=== PATIENT | male | born 1980 | race Caucasian/White ===

== ENCOUNTER 2017-12-04 15:30 | Emergency (ER) | payer OTHER ==
[~2017-12-04] VITALS: Ht 182.9 cm; Wt 109.0 kg
[2017-12-04] MEDS ORDERED: PROPARACAINE OPHTH 0.5%, 15ML EACHEYE ONE (16:30)
[2017-12-04] MEDS ORDERED: FLUORESCEIN OPHTHALMIC 1 MG STRIP EACHEYE ONE (16:30)
[2017-12-04 17:42] VITALS: BP 131/92
[2017-12-04] MEDS ORDERED: PROPARACAINE OPHTH 0.5%, 15ML ONE (17:52)
[2017-12-04] MEDS ORDERED: FLUORESCEIN OPHTHALMIC 1 MG STRIP ONE (17:52)
== END 2017-12-04 19:21 | disposition home or self-care (01) ==
LOC: ED 18:50
DX: S05.02XA Injury of conjunctiva and corneal abrasion without foreign body, left eye, initial encounter (principal); X58.XXXA Exposure to other specified factors, initial encounter; Y93.9 Activity, unspecified; Y92.89 Other specified places as the place of occurrence of the external cause; Y99.8 Other external cause status
CPT/HCPCS: 99283

== ENCOUNTER 2018-10-14 17:42 | Emergency (ER) | payer OTHER ==
[~2018-10-14] VITALS: Ht 182.9 cm; Wt 113.4 kg
[2018-10-14 18:47] LABS: BASOPHILS # (AUTO) 0.04 x10^3/uL (0-0.1); BASOPHILS % (AUTO) 0 % (0-1); EOSINOPHILS # (AUTO) 0.22 x10^3/uL (0-0.4); EOSINOPHILS % (AUTO) 2 % (1-7); LYMPHOCYTES % (AUTO) 28 % (22-44); MD NO; MEAN CORPUSCULAR HEMOGLOBIN 30.4 pg (27.5-34.5); MEAN CORPUSCULAR HGB CONC 34.6 g/dL (33.2-36.2); MEAN CORPUSCULAR VOLUME 87.9 fL (81-97); MEAN PLATELET VOLUME 8.7 fL (7.4-10.4); MONOCYTES % (AUTO) 7 % (2-9); NEUTROPHILS # (AUTO) 6.02 x10^3/uL (1.8-6.8); NEUTROPHILS % (AUTO) 62 % (42-75); PLATELET COUNT 309 x10^3/uL (130-400); RED BLOOD COUNT 5.32 x10^6/uL (4.38-5.82); RED CELL DISTRIBUTION WIDTH 13.6 % (9.4-14.8)
[2018-10-14 18:57] LABS: ALANINE AMINOTRANSFERASE 42 U/L (12-78); ALBUMIN 4.2 g/dL (3.4-5.0); ANION GAP 5 mmol/L (5-15); CALCIUM 9.1 mg/dL (8.5-10.1); CHLORIDE 110 mmol/L (98-107); CREATININE 1.13 mg/dL (0.7-1.3)
[2018-10-14 18:59] LABS: ALKALINE PHOSPHATASE 90 U/L (45-117); BILIRUBIN,TOTAL 0.3 mg/dL (0.2-1.0); TOTAL PROTEIN 8.1 g/dL (6.4-8.2)
--- NOTE | 2018-10-14 19:57 | NUR ---
pt up to bathrrom for ua
--- NOTE | 2018-10-14 20:06 | NUR ---
JOSE RAMON SENT
--- NOTE | 2018-10-14 20:09 | NUR ---
PT HERE FOR BLOODY STOOL THAT STARTED TODAY. PT SAYS THERE IS BLOOD MIXED IN THE FORMED STOOL AND BLOOD ON TOILET PAPER WHEN HE WIPES. ALL OF THESE SYMPTOMS STARTED TODAY. PT DENIES N/V OR DIARRHEA. VSS. CALL LIGHT IN REACH
[2018-10-14 20:19] LABS: MICROSCOPIC AUTO
[2018-10-14 20:25] LABS: CULTURE INDICATED? NO
--- NOTE | 2018-10-14 21:19 | NUR ---
PIV PLACED FOR CT. PT RESTING WITH NO NEEDS AT THIS TIME. CALL LIGHT IN REACH
--- NOTE | 2018-10-14 21:29 | NUR ---
PT TO CT
[2018-10-14] MEDS ORDERED: OMNIPAQUE 350 MG/ML, 100ML BOTTLE ONE (21:40)
[2018-10-14 22:46] VITALS: BP 121/78
== END 2018-10-14 22:49 | disposition home or self-care (01) ==
LOC: ED 22:11
DX: K62.5 Hemorrhage of anus and rectum (principal)
CPT/HCPCS: 36415; 74177; 80053; 81001; 83690; 85025; 99284; Q9967